=== PATIENT | male | born 1965 | race Caucasian/White ===

== ENCOUNTER 2018-11-25 09:37 | Emergency (ER) | payer BC ==
[2018-11-25 09:57] VITALS: BP 124/83
--- NOTE | 2018-11-25 10:38 | UC ---
Throat Pain/Nasal Anedr HPI - HPI Summary HPI Summary: 53-year-old male who has had cold symptoms with head congestion over the past 2 weeks. Today he states he feels like it's in his upper lungs. He is a smoker. He has a productive cough of yellow sputum. - History of Current Complaint Chief Complaint: UCRespiratory Stated Complaint: SINUS AND CHEST CONGESTION Time Seen by Provider: 11/25/18 10:38 Hx Obtained From: Patient Onset/Duration: Gradual Onset Severity: Mild Pain Intensity: 0 Cough: Productive - Productive cough of yellow sputum, no shortness of breath. Associated Signs & Symptoms: Positive: Sinus Discomfort, Nasal Discharge Related History: Smoking - Allergies/Home Medications Allergies/Adverse Reactions: Allergies Allergy/AdvReac Type Severity Reaction Status Date / Time fexofenadine [From Candice] Allergy Hives Verified 11/25/18 09:58 Home Medications: Home Medications Atorvastatin* [Lipitor 10 MG*] 1 tab PO DAILY 11/25/18 [History Confirmed ] Brimonidine Tartrate/Timolol [Combigan 0.2%-0.5% Eye Drops] 1 drop BOTH EYES DAILY 11/25/18 [History Confirmed 11/25/18] LORazepam [Ativan 1 MG TAB] 1 tab PO 11/25/18 [History] Travoprost Z 0.004% OPHTH (NF) [Travatan Z 0.004% OPTH (NF)] 1 % BOTH EYES DAILY 11/25/18 [History Confirmed 11/25/18] Valsartan/HCTZ 160/25(NF) 1 mg PO DAILY 11/25/18 [History Confirmed 11/25/18] PMH/Surg Hx/FS Hx/Imm Hx Previously Healthy: Yes - Surgical History Surgical History: Yes Surgery Procedure, Year, and Place: hernia - Family History Known Family History: Positive: Non-Contributory - Social History Alcohol Use: Daily Substance Use Type: None Smoking Status (MU): Heavy Every Day Tobacco Smoker Review of Systems All Other Systems Reviewed And Are Negative: Yes ENT: Positive: Nasal Discharge, Sinus Congestion, Sinus Pain/Tenderness Respiratory: Positive: Cough - Productive cough of yellow sputum.. Negative: Shortness Of Breath Is Patient Immunocompromised?: No Physical Exam Triage Information Reviewed: Yes Appearance: Well-Appearing, No Pain Distress, Well-Nourished Vital Signs: Initial Vital Signs Temp 96.7 F 11/25/18 09:55 Pulse 65 11/25/18 09:55 Resp 16 11/25/18 09:55 BP 124/83 11/25/18 09:55 Pulse Ox 100 11/25/18 09:55 Vital Signs Reviewed: Yes Eyes: Positive: Conjunctiva Clear ENT: Positive: Hearing grossly normal, Pharynx normal, Nasal congestion, TMs normal, Sinus tenderness - Mild frontal sinus tenderness bilaterally. Yellow purulent drainage posterior pharynx, yellow purulent nasal coryza right side., Uvula midline Neck exam: Normal Neck: Positive: Supple, Nontender, No Lymphadenopathy Respiratory: Positive: Lungs clear, Normal breath sounds, No respiratory distress, No accessory muscle use Cardiovascular: Positive: RRR, No Murmur, Pulses Normal, Brisk Capillary Refill Musculoskeletal Exam: Normal Neurological Exam: Normal Psychological Exam: Normal Skin Exam: Normal Throat Pain/Nasal Course/Dx - Course Course Of Treatment: Patient is comfortable. I am going to treat him for sinusitis and he is to follow-up with his primary care provider if no improvement in for 5 days. The patient is agreeable to this plan of action. - Differential Dx/Diagnosis Provider Diagnosis: Sinusitis Discharge - Sign-Out/Discharge Documenting (check all that apply): Patient Departure All imaging exams completed and their final reports reviewed: No Studies - Discharge Plan Condition: Fair Disposition: HOME Prescriptions: DOXYcycline CAP(*) [DOXYcycline 100MG CAP(*)] 100 mg PO BID 7 Days #14 cap Patient Education Materials: Sinusitis (ED) Referrals: No Primary Care Phys,NOPCP [Primary Care Provider] - [facility] [Outside] Additional Instructions: Increase fluids. No dairy products, antacids, multivitamins 2 hours before you take the doxycycline or 2 hours after you take doxycycline however you do want to take it with food. Follow-up with the [facility] or your primary care provider if no improvement in 4 or 5 days. - Billing Disposition and Condition Condition: FAIR Disposition: Home - Attestation Statements Provider Attestation: I was available for consult. This patient was seen by the SHLE[facility]. The patient was not presented to, seen by, or examined by me. -Diana
== END 2018-11-25 10:50 | disposition home or self-care (01) ==
LOC: UCEAST 09:37
DX: J32.9 Chronic sinusitis, unspecified (principal); F17.210 Nicotine dependence, cigarettes, uncomplicated
CPT/HCPCS: 99202; G0463